=== PATIENT | female | born 1980 | race Caucasian/White ===

== ENCOUNTER 2019-04-29 10:26 | Inpatient (IN) | payer MEDICAID ==
[~2019-04-29] VITALS: Ht 167.6 cm; Wt 100.5 kg
[2019-04-29] MEDS ORDERED: FLUO40CA2 PO (10:35)
--- NOTE | 2019-04-29 10:40 | NUR ---
THIS IS A 38 YO F BIB [facility] FROM [facility] W/ C/O ABD PAIN SINCE YESTERDAY. PATIENT STATES SHE HAD 1 EPISODE OF VOMITING AND DIARRHEA AROUND 0300 THIS MORNING. PATIENT STATES SHE WAS TOLD SHE HAD 5 UTERINE MASSES. FLAQUITA REPORTS POOR PAIN CONTROL DEPITE MEDICATING. VS STABLE. RESPIRATIONS ARE EVEN AND UNLABORED. PATIENT IS IN NO ACUTE DISTRESS. CALL LIGHT IN REACH. PROVIDER AT BEDSIDE. DENIES FURTHER NEEDS AT THIS TIME.
--- NOTE | 2019-04-29 10:58 | NUR ---
PATIENT AMBULATED TO THE BATHROOM WITH A STEADY GAIT.
[2019-04-29] MEDS ORDERED: MORPHINE SULFATE 4 MG/ML, 1ML ONE (11:30)
[2019-04-29] MEDS ORDERED: MORPHINE SULFATE 4 MG/ML, 1ML IVPush ONE (11:30)
--- NOTE | 2019-04-29 11:38 | NUR ---
PATIENT TO RADIOLOGY
--- NOTE | 2019-04-29 12:24 | NUR ---
PATIENT BACK FROM RADIOLOGY.
--- NOTE | 2019-04-29 12:25 | NUR ---
PT BACK FROM ULTRASOUND. PT IN NO DISTRESS. FAMILY AT BEDSIDE. VS STABLE.
--- NOTE | 2019-04-29 14:32 | NUR ---
OBGYN AT BEDSIDE.
--- NOTE | 2019-04-29 15:03 | NUR ---
PELVIC EXAM PERFORMED BY PROVIDER AND CULTURES OBTAINED.
[2019-04-29] MEDS ORDERED: FLUCONAZOLE 100 MG TABLET ONE (15:07)
--- NOTE | 2019-04-29 15:10 | NUR ---
URINE COLLECTED AND SENT TO LAB.
[2019-04-29] MEDS ORDERED: NAPROXEN 500 MG TABLET ONE (15:22)
--- NOTE | 2019-04-29 15:28 | NUR ---
PATIENT MEDICATED WITH NAPROXEN. ASKED ABOUT LENGTH OF TIME AFTER TAKING NAPROXEN TIL SHE CAN TAKE PERCOCET. PATIENT INFORMED ON APPROXIMATE ONSET OF NAPROXENS ACTION.
[2019-04-29] MEDS ORDERED: FLUCONAZOLE 50 MG TABLET PO ONE (15:30)
[2019-04-29] MEDS ORDERED: NAPROXEN 500 MG TABLET PO ONE (15:30)
[2019-04-29 15:56] LABS: CLUE CELLS NONE SEEN (NONE SEEN); WET PREP WBCS MANY (FEW)
--- NOTE | 2019-04-29 16:00 | NUR ---
REPORT GIVEN TO DEBBIE MOREIRA.
[2019-04-29 16:25] VITALS: BP 101/68
[2019-04-29] MEDS ORDERED: PROMETHAZINE 25 MG SUPP PR PRN (17:30)
[2019-04-29] MEDS ORDERED: ONDANSETRON ODT 4 MG PO PRN (17:30)
[2019-04-29 17:43] VITALS: BP 134/98
[2019-04-29] MEDS: OXYcodone/APAP 5/325MG TABLET PO PRN ×2 (17:47→21:55)
[2019-04-29 19:06] VITALS: BP 124/78
[2019-04-29] MEDS: NAPROXEN 500 MG TABLET PO SCH (19:23)
[2019-04-29] MEDS: MORPHINE SULFATE 4 MG/ML, 1ML IVPush PRN (19:24)
[2019-04-30] MEDS ORDERED: FLUOXETINE 10 MG CAP ONE (01:24)
[2019-04-30] MEDS: MORPHINE SULFATE 4 MG/ML, 1ML IVPush PRN ×2 (01:28→11:16)
[2019-04-30] MEDS: OXYcodone/APAP 5/325MG TABLET PO PRN ×3 (02:18→13:03)
[2019-04-30 02:20] VITALS: BP 121/87
[2019-04-30 06:56] VITALS: BP 114/75
[2019-04-30] MEDS ORDERED: FLUOXETINE HCL 20 MG CAPSULE PO SCH (09:00)
[2019-04-30] MEDS: NAPROXEN 500 MG TABLET PO SCH (10:13)
== END 2019-04-30 14:02 | disposition home or self-care (01) | DRG 532 ==
LOC: ED 12:41 → EDIP 15:22 → 3N 16:10 → DCLOUNGE 04-30 13:45
PROVIDERS: ADMIT Obstetrics & Gynecology; ATTEND Obstetrics & Gynecology
DX: N83.292 Other ovarian cyst, left side (principal); E66.01 Morbid (severe) obesity due to excess calories; F43.10 Post-traumatic stress disorder, unspecified; Z88.8 Allergy status to other drugs, medicaments and biological substances; Z68.35 Body mass index [BMI] 35.0-35.9, adult; Z62.810 Personal history of physical and sexual abuse in childhood; Z80.3 Family history of malignant neoplasm of breast; Z82.49 Family history of ischemic heart disease and other diseases of the circulatory system; Z83.3 Family history of diabetes mellitus; Z90.49 Acquired absence of other specified parts of digestive tract
CPT/HCPCS: 76830; 87070; 87205; 87210; 87491; 87591; 87808; 99285; G0378; J2270